=== PATIENT | male | born 1965 | race Caucasian/White ===

== ENCOUNTER 2016-10-04 10:14 | Inpatient (IN) | payer OTHER ==
[2016-10-04] VITALS (22 sets, daily range): BP systolic 95–142; BP diastolic 61–91; PULSE 78–106; RESP 12–18; Ht 185.4 cm; Wt 98.4 kg
[~2016-10-04] VITALS: Ht 185.4 cm; Wt 98.4 kg
[~2016-10-04 10:14] MED LIST: EPHEDrine SULFATE 50 MG/5 ML SYG ONE; SUCCINYLCHOLINE CHLORIDE 100 MG/5 ML SYG IV ONE
[2016-10-04] MEDS ORDERED: AMPICILLIN/SULB 3 GM/NS (PMX) 100 ML IVPB ONE (12:00)
[2016-10-04] MEDS ORDERED: SOD CHLORIDE 0.9% 1,000 ML IV SCH (12:00)
[2016-10-04] MEDS ORDERED: FENTAnyl 50 MCG/ML VIAL ONE ×2 (13:21→16:22)
[2016-10-04] MEDS ORDERED: ROCURONIUM 50 MG INJ ONE (13:21)
[2016-10-04] MEDS ORDERED: PROPOFOL 20 ML ONE (13:21)
[2016-10-04] MEDS ORDERED: MIDAZOLAM 1 MG/ML 2 ML INJ ONE (13:21)
[2016-10-04] MEDS ORDERED: LIDOCAINE 1% (MDV) 20 ML INJ ONE (13:22)
[2016-10-04] MEDS ORDERED: PHENYLephrine (100 MCG/ML) 5ML SYG ONE (14:14)
[2016-10-04] MEDS ORDERED: ROPIVACAINE 0.2% 20 ML VIAL ONE ×2 (14:34→16:20)
[2016-10-04] MEDS ORDERED: ONDANSETRON 4 MG INJ ONE (15:17)
[2016-10-04] MEDS ORDERED: FAMOTIDINE 20 MG INJ ONE (15:18)
[2016-10-04] MEDS ORDERED: DEXAMETHASONE 4 MG/ML 1 ML INJ ONE (15:18)
[2016-10-04] MEDS ORDERED: SUGAMMADEX SODIUM 200 MG/2 ML VIAL IV ONE (16:17)
[2016-10-04] MEDS ORDERED: FENTAnyl 2MCG/ML-ROPIV 0.2% 100 ML ONE (16:18)
[2016-10-04] MEDS: FENTAnyl 2MCG/ML-ROPIV 0.2% 100 ML BAG EPI SCH (17:12)
[2016-10-04] MEDS ORDERED: DIPHENHYDRAMINE 50 MG INJ IV PRN (17:30)
[2016-10-04] MEDS ORDERED: PROCHLORPERAZINE 10 MG INJ IV PRN (17:30)
[2016-10-04] MEDS ORDERED: NALOXONE (0.4 MG/ML) INJ IV PRN (17:30)
[2016-10-04] MEDS ORDERED: MEPERIDINE 25 MG INJ IV PRN (17:30)
[2016-10-04] MEDS ORDERED: HYDROmorphONE (0.2 MG/ML) 10ML SYG IV PRN ×2 (17:30)
[2016-10-04] MEDS ORDERED: ONDANSETRON 4 MG INJ IV PRN (17:30)
[2016-10-04] MEDS ORDERED: HYDROmorphONE 1 MG/ML SYG IV PRN ×2 (17:30)
[2016-10-04] MEDS: D5W-0.45 NACL + KCL 20 MEQ 1,000 ML IV SCH ×2 (17:38→23:14)
--- NOTE | 2016-10-04 17:42 | RADRPT ---
PROCEDURE: XR Chest. CLINICAL INDICATION: Shortness of breath. Partial gastrectomy TECHNIQUE: A single portable view of the chest was obtained. COMPARISON: None FINDINGS: A nasogastric tube is seen, the tip of which is not visualized. A right internal jugular central ve nous catheter is seen in the SVC. The cardiomediastinal silhouette is within normal limits. The elvia ngs and pleural spaces are clear. The soft tissues and osseous structures are unremarkable. IMPRESSION: 1. Nasogastric tube with the tip not visualized. The right internal jugular catheter is in satisfa ctory location. 2. No acute cardiopulmonary disease. RPTAT: HPNM Physician Lesia Date Time Electronically viewed and signed by Physician Lesia on 10/04/2016 17:42 /
--- NOTE | 2016-10-04 20:05 | OPR ---
DATE OF OPERATION: 10/04/2016 PREOPERATIVE DIAGNOSIS: Gastric cancer. POSTOPERATIVE DIAGNOSIS: Subtotal gastrectomy with Veronica-en-Y gastrojejunostomy. ANESTHESIA: General. ANESTHESIOLOGIST: Jeremy Martínez MD SURGEON: Erick Adams MD GLUE JOINTER FEEDER: Rick Serrano MD INDICATIONS FOR PROCEDURE: The patient is a 51-year-old male, who developed epigastric abdominal pain. He underwent upper endoscopy and was found to have an ulcer in the antrum of the stomach. Biopsies were taken and were positive for adenocarcinoma. The patient was counseled as to the need for definitive surgery. He consented and was scheduled for surgery. DESCRIPTION OF PROCEDURE: The patient was brought to the operating theater, placed under general anesthesia. Prior to that, however, an epidural catheter was placed. After being put under general anesthesia, a central venous catheter was also placed. The patient's abdomen was then shaved, prepped and draped in the usual sterile fashion. An upper midline incision was made from the left side of the xiphoid through the midline and around the umbilicus. Subcutaneous tissue was dissected with cautery down to the anterior rectus sheath. The linea alba was incised. The abdomen was entered without difficulty. The Bookwalter was then placed and excellent exposure was obtained. Initial inspection of the abdomen including the liver and the mesentery did not reveal any definite obvious evidence of metastatic spread. The stomach was then inspected. There was a palpable lesion in the antrum of the stomach. Preparations for Billroth 2 surgery were then made. The avascular space between the greater omentum and the transverse mesentery was entered, sequentially the portions of the greater omentum were transected using the LigaSure device. This took place to a point well beyond the tumor more distally. The 1st portion of the duodenum was mobilized. The lesser omentum was then incised and also transected with the LigaSure device. At this point, with the stomach fully mobilized, the 1st portion of the duodenum was transected with a TA stapler, and the staple line was then oversewn with a 2-0 Prolene suture. Suitable points of transection on the proximal stomach were then identified, taking great care to include complete resection of the antrum and a portion of the body of the stomach. Transection then took place with GERARDO staplers with green ruthann. Specimen was removed and the attending pathologist, , inspected it. He opened the specimen and stated the margins were grossly clear. At this point, preparation for reanastomosis was made. The ligament of Treitz was identified. A point approximately 35 cm distal, preparations for transection was made. The bowel was cleared of its mesentery and transected with the GERARDO stapler. The proximal portion of the duodenum was then brought in close approximation with a more distal segment of jejunum approximately 35 cm distal to the point of transection. Stay sutures were used to approximate the 2 pieces of bowel. Dual enterotomies were made. Anastomosis was created with a GERARDO stapler. Staple line was inspected. Mild residual bleeding was controlled with either cautery or suture with 3-0 pop-off sutures. The anastomosis was then completed with a GERARDO stapler. The anastomosis was inspected and deemed to be quite suitable. Preparations for the gastrojejunostomy were then made. The proximal loop of jejunum was then brought in antecolic fashion to the stomach. Decision was made to perform a retrogastric anastomosis. The Veronica limb was then brought in close approximation with the posterior aspect of the greater curvature. Stay sutures of 3-0 Vicryl sutures were placed. A gastrotomy and a jejunotomy was made. An anastomosis was then created with a GERARDO stapler and the staple line was inspected. Minimal bleeding was controlled with cautery. The NG tube was then brought into the anastomosis and the anastomosis was completed with a GERARDO stapler in a standard fashion. At this point, lap, sponge, and instrument counts were correct. Final irrigation and inspection of the abdomen took place. There was no evidence of bleeding. The Bookwalter retractor was then removed and again lap, sponge, and instrument counts were correct. The abdomen was then closed with number 1 looped PDS sutures in running fashion, and the skin was reapproximated with skin ruthann. The patient tolerated the procedure well. Estimated blood loss was 50 cc. There were no complications and the patient was transported in stable condition to the recovery room. Dictated By: Erick Adams MD /peace/gabbi /Document#: [id number]
[2016-10-04] MEDS: PIPER-TAZO 3.375 GM IV (PMX) 100 ML IVPB SCH (20:30)
[2016-10-04] MEDS ORDERED: APIX5TAB PO (22:43)
[2016-10-05] VITALS (13 sets, daily range): BP systolic 89–145; BP diastolic 52–81; PULSE 88–100; RESP 16–19
[2016-10-05] MEDS: D5W-0.45 NACL + KCL 20 MEQ 1,000 ML IV SCH ×3 (01:48→17:54)
[2016-10-05] MEDS: PIPER-TAZO 3.375 GM IV (PMX) 100 ML IVPB SCH ×3 (02:03→14:05)
[2016-10-05] MEDS: PANTOPRAZOLE 40 MG INJ IV SCH (06:04)
[2016-10-05] MEDS: FENTAnyl 2MCG/ML-ROPIV 0.2% 100 ML BAG EPI SCH ×2 (06:17→20:04)
--- NOTE | 2016-10-05 07:50 | HP ---
Date/Time of Note Date/Time of Note DATE: 10/05/16 TIME: 07:49 Assessment/Plan VTE Prophylaxis VTE Prophylaxis Intervention: other Lines/Catheters IV Catheter Type (from Nrsg): Central Line Central line still needed: Yes Reason Cath still needed: skin wounds contaminated by urine Assessment/Plan Chief Complaint/Hosp Course 1) stomach CA - s/p partial gastrectomy - monitor clinically - follow surgical recommendations Problems: HPI/ROS Admit Date/Time Admit Date/Time Oct 04, 2016 at 10:14 Hx of Present Illness Patient with stomach cancer comes in for partial gastrectomy. Patient tolerated the procedure without complication. PMH/Family/Social Social History Alcohol Use: occasionally Smoking Status: Current every day smoker Exam/Review of Systems Vital Signs Vitals Vital Signs Date Time Temp Pulse Resp B/P Pulse Ox O2 Delivery O2 Flow Rate FiO2 10/05/16 06:40 94 16 90/58 98 Nasal Cannula 2.0 10/05/16 04:40 98.7 Intake and Output 10/04/16 10/04/16 10/05/16 15:00 23:00 07:00 Intake Total 2600 ml 1550 ml Output Total 50 ml 2350 ml Balance 2550 ml -800 ml Exam Constitutional: well developed Head: atraumatic, normocephalic Neck: supple Respiratory: clear to auscultation Cardiovascular: regular rate and rhythm Gastrointestinal: non-tender, soft Extremities: normal pulses Medications Medications Current Medications Pantoprazole 40 mg 40 mg DAILY@06 IV Last administered on 10/05/16 06:04; Admin Dose 40 MG; Start 10/05/16 at 06:00 Potassium Chloride/Dextrose/ Sod Cl (D5-1/2ns + KCl 20 Meq) 1,000 ml @ 150 mls/ hr Q6H40M IV Last administered on 10/05/16 01:48; Admin Dose 150 MLS/HR; Start 10/04/16 at 16:34 Hydromorphone HCl (Dilaudid) 0.2 mg Q2H PRN IV PAIN LEVEL 1-5; Start 10/04/16 at 17:30 Hydromorphone HCl (Dilaudid) 0.4 mg Q2H PRN IV PAIN LEVEL 6-10; Start 10/04/16 at 17:30 Naloxone HCl 0.2 mg 0.2 mg Q2M PRN IV FOR RESP RATE 8 OR LESS; Start 10/04/16 at 17:30 Piperacillin Sod/ Tazobactam Sod (Zosyn 3.375gm/ 100 ml (Pmx)) 100 ml @ 200 mls /hr Q6H IVPB Last administered on 10/05/16t 02:03; Admin Dose 200 MLS/HR; Start 10/04/16 at 20:00; Stop 10/05/16 at 14:29 MOHINDER SIMMS Oct 05, 2016 07:50
[2016-10-05 09:32] LABS: BASOPHILS % 0.3 % (0.0-2.0); HEMATOCRIT 43.3 % (42.0-52.0); HEMOGLOBIN 14.8 g/dl (14.0-18.0); MEAN CORPUSCULAR HEMOGLOBIN 30.9 pg (29.0-33.0); MEAN CORPUSCULAR HGB CONC 34.2 g/dl (32.0-37.0); MEAN CORPUSCULAR VOLUME 90.4 fl (82.0-101.0); MEAN PLATELET VOLUME 10.1 fl (7.4-10.4); MONOCYTES % 8.6 % (0.0-11.0); NEUTROPHIL # 9.2 10^3/ul (1.6-7.5); NEUTROPHILS % 81.6 % (39.0-77.0); PLATELET COUNT 186 10^3/UL (140-415); RED BLOOD COUNT 4.79 10^6/ul (4.70-6.10); RED CELL DISTRIBUTION WIDTH 12.5 % (11.5-14.5); WHITE BLOOD COUNT 11.2 10^3/ul (4.8-10.8)
[2016-10-05 09:45] LABS: INR 1.14; PROTIME 14.6 Sec (12.2-14.2); PT RATIO 1.1
[2016-10-05 09:46] LABS: PARTIAL THROMBOPLASTIN TIME 32.7 Sec (25.0-35.0)
[2016-10-05 09:47] LABS: CALCIUM 7.8 mg/dl (8.4-10.2); CREATININE 0.92 mg/dl (0.61-1.24); POTASSIUM 4.4 mmol/L (3.5-5.1)
--- NOTE | 2016-10-05 13:15 | PN ---
Date/Time of Note Date/Time of Note DATE: 10/05/16 TIME: 13:01 Assessment/Plan VTE Prophylaxis VTE Prophylaxis Intervention: SCD's Lines/Catheters IV Catheter Type (from Nrsg): Central Line Central line still needed: Yes Reason Cath still needed: other (indicate) (pt.has epidural catheter for pain, untill the epidural comes out, we have to keep foly in place) Assessment/Plan Assessment/Plan 51 years old male. Postop day #1. Status post subtotal gastrectomy for pre- pyloric cancer of the stomach. Stable and is doing fine. NG tube is in place. Patient is n.p.o. Wagner catheter is in place. Patient has epidural catheter and anesthesia therefore we will keep foly catheter till the epidural catheter comes out. SCDs is in place. Patient advised to perform active movement of the toes and ankles and knees in the bed. Subjective 24 Hr Interval Summary Free Text/Dictation No specific complaint. Would like to get out of bed and walk around. Patient was told because of the epidural. Could really be cautious to get him out of bed and let him walk around. Exam/Review of Systems Vital Signs Vitals Vital Signs Date Time Temp Pulse Resp B/P Pulse Ox O2 Delivery O2 Flow Rate FiO2 10/05/16 07:47 98.1 85 18 89/55 100 10/05/16 06:40 Nasal Cannula 2.0 Intake and Output 10/04/16 10/04/16 10/05/16 15:00 23:00 07:00 Intake Total 2600 ml 1550 ml Output Total 50 ml 2350 ml Balance 2550 ml -800 ml Exam Postop day #1. Vital sign is stable. NG tube was connected to intermittent suction but unfortunately it was not functioning so called the maintenance to change the machine. Wagner is in place and will be in the place and the patient gets out of bed and walks around an epidural is removed. Heart regular lungs clear abdomen soft legs no calf tenderness SCDs around the legs. Results Result Diagram: 10/05/16 0852 10/05/16 0852 Results 24 hrs Laboratory Tests Test 10/05/16 08:52 White Blood Count 11.2 H Red Blood Count 4.79 Hemoglobin 14.8 Hematocrit 43.3 Mean Corpuscular Volume 90.4 Mean Corpuscular Hemoglobin 30.9 Mean Corpuscular Hemoglobin Concent 34.2 Red Cell Distribution Width 12.5 Platelet Count 186 Mean Platelet Volume 10.1 Neutrophils % 81.6 H Lymphocytes % 9.0 L Monocytes % 8.6 Eosinophils % 0.0 Basophils % 0.3 Nucleated Red Blood Cells % 0.0 Neutrophils # 9.2 H Lymphocytes # 1.0 Monocytes # 1.0 H Eosinophils # 0.0 Basophils # 0.0 Nucleated Red Blood Cells # 0.0 Prothrombin Time 14.6 H Prothrombin Time Ratio 1.1 INR International Normalized Ratio 1.14 Activated Partial Thromboplast Time 32.7 Sodium Level 139 Potassium Level 4.4 Chloride Level 102 Carbon Dioxide Level 27 Anion Gap 14 Blood Urea Nitrogen 11 Creatinine 0.92 Glucose Level 126 Calcium Level 7.8 L Medications Medications Current Medications Pantoprazole 40 mg 40 mg DAILY@06 IV Last administered on 10/05/16 06:04; Admin Dose 40 MG; Start 10/05/16 at 06:00 Potassium Chloride/Dextrose/ Sod Cl (D5-1/2ns + KCl 20 Meq) 1,000 ml @ 150 mls/ hr Q6H40M IV Last administered on 10/05/16 09:38; Admin Dose 150 MLS/HR; Start 10/04/16 at 16:34 Hydromorphone HCl (Dilaudid) 0.2 mg Q2H PRN IV PAIN LEVEL 1-5; Start 10/04/16 at 17:30 Hydromorphone HCl (Dilaudid) 0.4 mg Q2H PRN IV PAIN LEVEL 6-10; Start 10/04/16 at 17:30 Naloxone HCl 0.2 mg 0.2 mg Q2M PRN IV FOR RESP RATE 8 OR LESS; Start 10/04/16 at 17:30 Piperacillin Sod/ Tazobactam Sod (Zosyn 3.375gm/ 100 ml (Pmx)) 100 ml @ 200 mls /hr Q6H IVPB Last administered on 10/05/16 09:34; Admin Dose 200 MLS/HR; Start 10/04/16 at 20:00; Stop 10/05/16 at 14:29 HILARY WRIGHT MD Oct 05, 2016 13:14
[2016-10-05] MEDS ORDERED: HYDROmorphONE 1 MG/ML SYG IV PRN (22:30)
[2016-10-06] MEDS: D5W-0.45 NACL + KCL 20 MEQ 1,000 ML IV SCH ×4 (01:04→22:30)
[2016-10-06 04:00] VITALS: BP 104/62; PULSE 97; RESP 18
[2016-10-06 06:05] LABS: BASOPHIL # 0.1 10^3/ul (0.0-0.1); BASOPHILS % 0.5 % (0.0-2.0); EOSINOPHILS # 0.1 10^3/ul (0.0-0.5); EOSINOPHILS % 1.2 % (0.0-7.0); HEMATOCRIT 45.1 % (42.0-52.0); HEMOGLOBIN 14.7 g/dl (14.0-18.0); LYMPHOCYTES % 18.1 % (15.0-51.0); MEAN CORPUSCULAR HEMOGLOBIN 29.6 pg (29.0-33.0); MEAN CORPUSCULAR HGB CONC 32.6 g/dl (32.0-37.0); MEAN CORPUSCULAR VOLUME 90.9 fl (82.0-101.0); MEAN PLATELET VOLUME 10.3 fl (7.4-10.4); MONOCYTE # 1.4 10^3/ul (0.3-0.9); NEUTROPHIL # 7.6 10^3/ul (1.6-7.5); NEUTROPHILS % 67.8 % (39.0-77.0); PLATELET COUNT 180 10^3/UL (140-415); RED BLOOD COUNT 4.96 10^6/ul (4.70-6.10); WHITE BLOOD COUNT 11.2 10^3/ul (4.8-10.8)
[2016-10-06 06:25] LABS: CALCIUM 7.9 mg/dl (8.4-10.2); CREATININE 0.97 mg/dl (0.61-1.24)
[2016-10-06] MEDS: PANTOPRAZOLE 40 MG INJ IV SCH (06:34)
[2016-10-06 07:00] VITALS: BP 100/63; RESP 18
[2016-10-06 07:05] LABS: INR 1.13; PROTIME 14.5 Sec (12.2-14.2); PT RATIO 1.1
[2016-10-06 07:06] LABS: PARTIAL THROMBOPLASTIN TIME 34.5 Sec (25.0-35.0)
[2016-10-06] MEDS: FENTAnyl 2MCG/ML-ROPIV 0.2% 100 ML BAG EPI SCH ×2 (09:21→23:47)
--- NOTE | 2016-10-06 10:56 | PN ---
Date/Time of Note Date/Time of Note DATE: 10/06/16 TIME: 10:55 Assessment/Plan VTE Prophylaxis VTE Prophylaxis Intervention: other Lines/Catheters IV Catheter Type (from Nrs): Central Line Central line still needed: Yes Assessment/Plan Chief Complaint/Hosp Course 1) stomach CA - s/p partial gastrectomy - monitor clinically - follow surgical recommendations Problems: Subjective 24 Hr Interval Summary Free Text/Dictation Patient complain of abdominal pain Exam/Review of Systems Vital Signs Vitals Vital Signs Date Time Temp Pulse Resp B/P Pulse Ox O2 Delivery O2 Flow Rate FiO2 10/06/16 07:00 98.5 88 18 100/63 97 10/06/16 04:00 Nasal Cannula 2.0 Intake and Output 10/05/16 10/05/16 10/06/16 15:00 23:00 07:00 Intake Total 806 ml 1056 ml 56 ml Output Total 1300 ml 150 ml Balance 806 ml -244 ml -94 ml Exam Constitutional: well developed Head: atraumatic, normocephalic Neck: supple Respiratory: clear to auscultation Cardiovascular: regular rate and rhythm Gastrointestinal: non-tender, soft Extremities: normal pulses Results Result Diagram: 10/06/16 0510 10/06/16 0509 Results 24 hrs Laboratory Tests Test 10/06/16 05:00 10/06/16 05:09 10/06/16 05:10 Prothrombin Time 14.5 H Prothrombin Time Ratio 1.1 INR International Normalized Ratio 1.13 Activated Partial Thromboplast Time 34.5 Sodium Level 141 Potassium Level 4.0 Chloride Level 102 Carbon Dioxide Level 29 Anion Gap 14 Blood Urea Nitrogen 10 Creatinine 0.97 Glucose Level 95 Calcium Level 7.9 L White Blood Count 11.2 H Red Blood Count 4.96 Hemoglobin 14.7 Hematocrit 45.1 Mean Corpuscular Volume 90.9 Mean Corpuscular Hemoglobin 29.6 Mean Corpuscular Hemoglobin Concent 32.6 Red Cell Distribution Width 13.0 Platelet Count 180 Mean Platelet Volume 10.3 Neutrophils % 67.8 Lymphocytes % 18.1 Monocytes % 12.0 H Eosinophils % 1.2 Basophils % 0.5 Nucleated Red Blood Cells % 0.0 Neutrophils # 7.6 H Lymphocytes # 2.0 Monocytes # 1.4 H Eosinophils # 0.1 Basophils # 0.1 Nucleated Red Blood Cells # 0.0 Medications Medications Current Medications Pantoprazole 40 mg 40 mg DAILY@06 IV Last administered on 10/06/16 06:34; Admin Dose 40 MG; Start 10/05/16 at 06:00 Potassium Chloride/Dextrose/ Sod Cl (D5-1/2ns + KCl 20 Meq) 1,000 ml @ 150 mls/ hr Q6H40M IV Last administered on 10/06/16 07:54; Admin Dose 150 MLS/HR; Start 10/04/16 at 16:34 Hydromorphone HCl (Dilaudid) 0.2 mg Q2H PRN IV PAIN LEVEL 1-5; Start 10/04/16 at 17:30 Hydromorphone HCl (Dilaudid) 0.4 mg Q2H PRN IV PAIN LEVEL 6-10 Last administered on 10/06/16 10:02; Admin Dose 0.4 MG; Start 10/04/16 at 17:30 Naloxone HCl (Narcan) 0.2 mg Q2M PRN IV FOR RESP RATE 8 OR LESS; Start at 17:30 Hydromorphone HCl (Dilaudid) 0.2 mg Q10MIN PRN IV breakthrough pain Last administered on 10/05/16 22:35; Admin Dose 0.2 MG; Start 10/05/16 at 22:30 MOHINDER SIMMS Oct 06, 2016 10:56
[2016-10-06] MEDS ORDERED: ENOXAPARIN 30 MG/0.3 ML SYG SC SCH (11:00)
[2016-10-06 14:00] VITALS: BP 108/67; PULSE 87; RESP 17
--- NOTE | 2016-10-06 14:08 | PN ---
Date/Time of Note Date/Time of Note DATE: 10/06/16 TIME: 14:00 Assessment/Plan VTE Prophylaxis VTE Prophylaxis Intervention: SCD's Lines/Catheters IV Catheter Type (from Nrs): Central Line Central line still needed: Yes Urinary Cath still in place: Yes Reason Cath still needed: other (indicate) (Patient is on epidural anesthesia. When epidural catheter is removed then removal of the Wagner catheter will be followed) Assessment/Plan Assessment/Plan 51-year-old gentleman status post partial gastrectomy for the periampullary cancer of the stomach. Today is postop day #2 overall patient is doing fine vital sign is stable. NG tube. Central line. Wagner catheter. They are all in place and functioning. . [facility] has ordered that has a started patient on Lovenox 30 mg subcu first dose was given today morning. Considering that the NG tube drainage is a slightly bloody and the patient is immediate days. I think it is better to hold it to hold it for tomorrow dose. Continue SCDs. Subjective 24 Hr Interval Summary Free Text/Dictation October 06, 2016. Postop day #2. . Patient does not have any specific complaint. Pain is under control. The anesthesiologist has informed the nurse that patient can be out of bed and sitting in chair even though has epidural. But the Wagner catheter should not be removed. Exam/Review of Systems Vital Signs Vitals Vital Signs Date Time Temp Pulse Resp B/P Pulse Ox O2 Delivery O2 Flow Rate FiO2 10/06/16 09:00 Nasal Cannula 2.0 10/06/16 07:00 98.5 88 18 100/63 97 Intake and Output 10/05/16 10/05/16 10/06/16 15:00 23:00 07:00 Intake Total 806 ml 1056 ml 56 ml Output Total 1300 ml 150 ml Balance 806 ml -244 ml -94 ml Exam Patient is awake alert oriented 3 comfortable. Heart regular lungs clear abdomen soft. Extremities around the legs no calf tenderness. Hemoglobin hematocrit is stable. NG tube connected to intermittent suction there is 200 cc of semi-bloody fluid in the canister. Wagner catheter in place. Results Result Diagram: 10/06/16 0510 10/06/16 0509 Results 24 hrs Laboratory Tests Test 10/06/16 05:00 10/06/16 05:09 10/06/16 05:10 Prothrombin Time 14.5 H Prothrombin Time Ratio 1.1 INR International Normalized Ratio 1.13 Activated Partial Thromboplast Time 34.5 Sodium Level 141 Potassium Level 4.0 Chloride Level 102 Carbon Dioxide Level 29 Anion Gap 14 Blood Urea Nitrogen 10 Creatinine 0.97 Glucose Level 95 Calcium Level 7.9 L White Blood Count 11.2 H Red Blood Count 4.96 Hemoglobin 14.7 Hematocrit 45.1 Mean Corpuscular Volume 90.9 Mean Corpuscular Hemoglobin 29.6 Mean Corpuscular Hemoglobin Concent 32.6 Red Cell Distribution Width 13.0 Platelet Count 180 Mean Platelet Volume 10.3 Neutrophils % 67.8 Lymphocytes % 18.1 Monocytes % 12.0 H Eosinophils % 1.2 Basophils % 0.5 Nucleated Red Blood Cells % 0.0 Neutrophils # 7.6 H Lymphocytes # 2.0 Monocytes # 1.4 H Eosinophils # 0.1 Basophils # 0.1 Nucleated Red Blood Cells # 0.0 Medications Medications Current Medications Pantoprazole 40 mg 40 mg DAILY@06 IV Last administered on 10/06/16 06:34; Admin Dose 40 MG; Start 10/05/16 at 06:00 Potassium Chloride/Dextrose/ Sod Cl (D5-1/2ns + KCl 20 Meq) 1,000 ml @ 150 mls/ hr Q6H40M IV Last administered on 10/06/16 07:54; Admin Dose 150 MLS/HR; Start 10/04/16 at 16:34 Hydromorphone HCl (Dilaudid) 0.2 mg Q2H PRN IV PAIN LEVEL 1-5; Start 10/04/16 at 17:30 Hydromorphone HCl (Dilaudid) 0.4 mg Q2H PRN IV PAIN LEVEL 6-10 Last administered on 10/06/16 10:02; Admin Dose 0.4 MG; Start 10/04/16 at 17:30 Naloxone HCl (Narcan) 0.2 mg Q2M PRN IV FOR RESP RATE 8 OR LESS; Start at 17:30 Hydromorphone HCl (Dilaudid) 0.2 mg Q10MIN PRN IV breakthrough pain Last administered on 10/05/16 22:35; Admin Dose 0.2 MG; Start 10/05/16 at 22:30 Enoxaparin Sodium (Lovenox) 30 mg DAILY SC Last administered on 7/29/17at 11:46 ; Admin Dose 30 MG; Start 10/06/16 at 11:00 HILARY WRIGHT MD Oct 06, 2016 14:08
[2016-10-06 19:44] VITALS: BP 119/67; RESP 19
[2016-10-07 02:58] VITALS: BP 108/61; RESP 18
[2016-10-07] MEDS: PANTOPRAZOLE 40 MG INJ IV SCH (06:09)
[2016-10-07] MEDS: D5W-0.45 NACL + KCL 20 MEQ 1,000 ML IV SCH ×5 (06:11→19:43)
[2016-10-07 08:20] VITALS: BP 97/55; RESP 20
[2016-10-07 10:30] LABS: WHITE BLOOD COUNT 11.3 10^3/ul (4.8-10.8)
[2016-10-07 10:31] LABS: BASOPHIL # 0.1 10^3/ul (0.0-0.1); BASOPHILS % 0.4 % (0.0-2.0); EOSINOPHILS # 0.2 10^3/ul (0.0-0.5); HEMATOCRIT 43.6 % (42.0-52.0); HEMOGLOBIN 14.8 g/dl (14.0-18.0); LYMPHOCYTES # 1.2 10^3/ul (0.8-2.9); LYMPHOCYTES % 10.5 % (15.0-51.0); MEAN CORPUSCULAR HEMOGLOBIN 30.6 pg (29.0-33.0); MEAN CORPUSCULAR HGB CONC 33.9 g/dl (32.0-37.0); MEAN CORPUSCULAR VOLUME 90.3 fl (82.0-101.0); MEAN PLATELET VOLUME 10.2 fl (7.4-10.4); MONOCYTE # 1.3 10^3/ul (0.3-0.9); MONOCYTES % 11.2 % (0.0-11.0); NEUTROPHIL # 8.5 10^3/ul (1.6-7.5); NEUTROPHILS % 75.5 % (39.0-77.0); PLATELET COUNT 169 10^3/UL (140-415); RED BLOOD COUNT 4.83 10^6/ul (4.70-6.10); RED CELL DISTRIBUTION WIDTH 12.5 % (11.5-14.5)
[2016-10-07 10:38] LABS: INR 1.08; PT RATIO 1.1
[2016-10-07 10:39] LABS: PARTIAL THROMBOPLASTIN TIME 40.1 Sec (25.0-35.0)
[2016-10-07 10:44] LABS: CALCIUM 8.2 mg/dl (8.4-10.2); CREATININE 0.91 mg/dl (0.61-1.24); POTASSIUM 4.2 mmol/L (3.5-5.1)
--- NOTE | 2016-10-07 12:02 | PN ---
Date/Time of Note Date/Time of Note DATE: 10/07/16 TIME: 12:01 Assessment/Plan VTE Prophylaxis VTE Prophylaxis Intervention: other Lines/Catheters IV Catheter Type (from Nrsg): Central Line Central line still needed: Yes Urinary Cath still in place: Yes Reason Cath still needed: skin wounds contaminated by urine Assessment/Plan Chief Complaint/Hosp Course 1) stomach CA - s/p partial gastrectomy - monitor clinically - follow surgical recommendations Problems: Subjective 24 Hr Interval Summary Free Text/Dictation Patient states that the pain is under control Exam/Review of Systems Vital Signs Vitals Vital Signs Date Time Temp Pulse Resp B/P Pulse Ox O2 Delivery O2 Flow Rate FiO2 10/07/16 08:20 98.0 70 20 97/55 100 10/07/16 08:00 Nasal Cannula 1.0 Intake and Output 10/06/16 10/06/16 10/07/16 14:59 22:59 06:59 Intake Total 2052 ml 1056 ml 1000 ml Output Total 1120 ml 2300 ml Balance 2052 ml -64 ml -1300 ml Exam Constitutional: well developed Head: atraumatic, normocephalic Neck: supple Respiratory: clear to auscultation Cardiovascular: regular rate and rhythm Gastrointestinal: non-tender, soft Extremities: normal pulses Results Result Diagram: 10/07/1617 10/07/16 0917 Results 24 hrs Laboratory Tests Test 10/07/16 09:17 White Blood Count 11.3 H Red Blood Count 4.83 Hemoglobin 14.8 Hematocrit 43.6 Mean Corpuscular Volume 90.3 Mean Corpuscular Hemoglobin 30.6 Mean Corpuscular Hemoglobin Concent 33.9 Red Cell Distribution Width 12.5 Platelet Count 169 Mean Platelet Volume 10.2 Neutrophils % 75.5 Lymphocytes % 10.5 L Monocytes % 11.2 H Eosinophils % 2.0 Basophils % 0.4 Nucleated Red Blood Cells % 0.0 Neutrophils # 8.5 H Lymphocytes # 1.2 Monocytes # 1.3 H Eosinophils # 0.2 Basophils # 0.1 Nucleated Red Blood Cells # 0.0 Prothrombin Time 14.0 Prothrombin Time Ratio 1.1 INR International Normalized Ratio 1.08 Activated Partial Thromboplast Time 40.1 H Sodium Level 139 Potassium Level 4.2 Chloride Level 99 Carbon Dioxide Level 28 Anion Gap 16 Blood Urea Nitrogen 8 Creatinine 0.91 Glucose Level 106 Calcium Level 8.2 L Medications Medications Current Medications Pantoprazole 40 mg 40 mg DAILY@06 IV Last administered on 10/07/16 06:09; Admin Dose 40 MG; Start 10/05/16 at 06:00 Potassium Chloride/Dextrose/ Sod Cl (D5-1/2ns + KCl 20 Meq) 1,000 ml @ 150 mls/ hr Q6H40M IV Last administered on 10/07/16 06:11; Admin Dose 150 MLS/HR; Start 10/04/16 at 16:34 Hydromorphone HCl (Dilaudid) 0.2 mg Q2H PRN IV PAIN LEVEL 1-5 Last administered on 10/07/16 09:43; Admin Dose 0.2 MG; Start 10/04/16 at 17:30 Hydromorphone HCl (Dilaudid) 0.4 mg Q2H PRN IV PAIN LEVEL 6-10 Last administered on 10/06/16 10:02; Admin Dose 0.4 MG; Start 10/04/16 at 17:30 Naloxone HCl (Narcan) 0.2 mg Q2M PRN IV FOR RESP RATE 8 OR LESS; Start at 17:30 Hydromorphone HCl (Dilaudid) 0.2 mg Q10MIN PRN IV breakthrough pain Last administered on 10/05/16 22:35; Admin Dose 0.2 MG; Start 10/05/16 at 22:30 Enoxaparin Sodium (Lovenox) 30 mg DAILY SC Last administered on 10/06/16 11:46 ; Admin Dose 30 MG; Start 10/06/16 at 11:00; Status Future Hold MOHINDER SIMMS Oct 07, 2016 12:02
--- NOTE | 2016-10-07 14:59 | PN ---
Date/Time of Note Date/Time of Note DATE: 10/07/16 TIME: 14:50 Assessment/Plan VTE Prophylaxis VTE Prophylaxis Intervention: ambulation, SCD's Lines/Catheters IV Catheter Type (from Nrs): Central Line Central line still needed: Yes Urinary Cath still in place: Yes Reason Cath still needed: other (indicate) (Epidural catheter was DC'd just half an hour ago, patient is not fully ambulated yet we will give some time for tomorrow morning and at that time we will DC the Wagner catheter .) Assessment/Plan Assessment/Plan 51-year-old gentleman status post subtotal gastrectomy for cancer of the stomach. Postop day #3 so far the vital sign is stable. NG tube is in place. Draining serosanguineous fluid. Last 24 hours was 260 cc. Anesthesiologist stopped the epidural catheter. By tomorrow morning the effect of the epidural is completely gone and we will ambulate the patient completely and also we will DC the Wagner catheter. Subjective 24 Hr Interval Summary Free Text/Dictation Postop day #3. Status post subtotal gastrectomy. Does not have any specific complaint. Epidural catheter was DC'd by the anesthesiologist just about half an hour ago. Patient stated that has passed some flatus. No bowel movement. Exam/Review of Systems Vital Signs Vitals Vital Signs Date Time Temp Pulse Resp B/P Pulse Ox O2 Delivery O2 Flow Rate FiO2 10/07/16 08:20 98.0 70 20 97/55 100 10/07/16 08:00 Nasal Cannula 1.0 Intake and Output 10/06/16 10/06/16 10/07/16 15:00 23:00 07:00 Intake Total 2052 ml 1056 ml 1000 ml Output Total 1120 ml 2300 ml Balance 2052 ml -64 ml -1300 ml Exam Awake alert oriented 3 laying down in the bed. Vital sign is stable. Heart regular lungs clear abdomen not distended soft. Lower extremity no calf tenderness. Wagner catheter is in place we will keep till tomorrow morning. Results Result Diagram: 10/07/1617 10/07/1617 Results 24 hrs Laboratory Tests Test 10/07/16 09:17 White Blood Count 11.3 H Red Blood Count 4.83 Hemoglobin 14.8 Hematocrit 43.6 Mean Corpuscular Volume 90.3 Mean Corpuscular Hemoglobin 30.6 Mean Corpuscular Hemoglobin Concent 33.9 Red Cell Distribution Width 12.5 Platelet Count 169 Mean Platelet Volume 10.2 Neutrophils % 75.5 Lymphocytes % 10.5 L Monocytes % 11.2 H Eosinophils % 2.0 Basophils % 0.4 Nucleated Red Blood Cells % 0.0 Neutrophils # 8.5 H Lymphocytes # 1.2 Monocytes # 1.3 H Eosinophils # 0.2 Basophils # 0.1 Nucleated Red Blood Cells # 0.0 Prothrombin Time 14.0 Prothrombin Time Ratio 1.1 INR International Normalized Ratio 1.08 Activated Partial Thromboplast Time 40.1 H Sodium Level 139 Potassium Level 4.2 Chloride Level 99 Carbon Dioxide Level 28 Anion Gap 16 Blood Urea Nitrogen 8 Creatinine 0.91 Glucose Level 106 Calcium Level 8.2 L Medications Medications Current Medications Pantoprazole 40 mg 40 mg DAILY@06 IV Last administered on 10/07/16 06:09; Admin Dose 40 MG; Start 10/05/16 at 06:00 Potassium Chloride/Dextrose/ Sod Cl (D5-1/2ns + KCl 20 Meq) 1,000 ml @ 150 mls/ hr Q6H40M IV Last administered on 10/07/16 13:16; Admin Dose 150 MLS/HR; Start 10/04/16 at 16:34 Hydromorphone HCl (Dilaudid) 0.2 mg Q2H PRN IV PAIN LEVEL 1-5 Last administered on 10/07/16 09:43; Admin Dose 0.2 MG; Start 10/04/16 at 17:30; Stop 10/07/16 at 21:36 Hydromorphone HCl (Dilaudid) 0.4 mg Q2H PRN IV PAIN LEVEL 6-10 Last administered on 10/06/16 10:02; Admin Dose 0.4 MG; Start 10/04/16 at 17:30; Stop 10/07/16 at 21:36 Naloxone HCl (Narcan) 0.2 mg Q2M PRN IV FOR RESP RATE 8 OR LESS; Start at 17:30; Stop 10/07/16 at 21:36 Hydromorphone HCl (Dilaudid) 0.2 mg Q10MIN PRN IV breakthrough pain Last administered on 10/05/16 22:35; Admin Dose 0.2 MG; Start 10/05/16 at 22:30; Stop 10/07/16 at 21:36 Enoxaparin Sodium (Lovenox) 30 mg DAILY SC Last administered on 10/06/16t 11:46 ; Admin Dose 30 MG; Start 10/06/16 at 11:00; Status Future Hold HILARY WRIGHT MD Oct 07, 2016 14:59
[2016-10-07] MEDS ORDERED: HYDROmorphONE 1 MG/ML SYG IV PRN ×2 (15:00→16:00)
[2016-10-07 15:42] VITALS: BP 112/67; RESP 20
[2016-10-07 19:14] VITALS: BP 113/68; RESP 18
[2016-10-08] MEDS: D5W-0.45 NACL + KCL 20 MEQ 1,000 ML IV SCH ×3 (01:21→20:34)
[2016-10-08] MEDS: PANTOPRAZOLE 40 MG INJ IV SCH (04:51)
[2016-10-08 08:40] VITALS: BP 126/77; RESP 18
[2016-10-08 11:32] LABS: BASOPHIL # 0.1 10^3/ul (0.0-0.1); BASOPHILS % 0.6 % (0.0-2.0); EOSINOPHILS # 0.6 10^3/ul (0.0-0.5); EOSINOPHILS % 6.4 % (0.0-7.0); HEMATOCRIT 44.1 % (42.0-52.0); HEMOGLOBIN 15.1 g/dl (14.0-18.0); LYMPHOCYTES # 1.2 10^3/ul (0.8-2.9); LYMPHOCYTES % 13.7 % (15.0-51.0); MEAN CORPUSCULAR HEMOGLOBIN 30.4 pg (29.0-33.0); MEAN CORPUSCULAR HGB CONC 34.2 g/dl (32.0-37.0); MEAN CORPUSCULAR VOLUME 88.7 fl (82.0-101.0); MEAN PLATELET VOLUME 9.9 fl (7.4-10.4); MONOCYTE # 0.8 10^3/ul (0.3-0.9); MONOCYTES % 9.7 % (0.0-11.0); NEUTROPHILS % 69.3 % (39.0-77.0); PLATELET COUNT 175 10^3/UL (140-415); RED BLOOD COUNT 4.97 10^6/ul (4.70-6.10); RED CELL DISTRIBUTION WIDTH 12.1 % (11.5-14.5); WHITE BLOOD COUNT 8.7 10^3/ul (4.8-10.8)
[2016-10-08 12:00] LABS: INR 1.15; PROTIME 14.7 Sec (12.2-14.2); PT RATIO 1.1
[2016-10-08 12:01] LABS: PARTIAL THROMBOPLASTIN TIME 39.6 Sec (25.0-35.0)
[2016-10-08 12:10] LABS: CALCIUM 8.6 mg/dl (8.4-10.2); CREATININE 0.8 mg/dl (0.61-1.24); POTASSIUM 4.2 mmol/L (3.5-5.1)
--- NOTE | 2016-10-08 15:02 | PN ---
Date/Time of Note Date/Time of Note DATE: 10/08/16 TIME: 15:01 Assessment/Plan VTE Prophylaxis VTE Prophylaxis Intervention: other Lines/Catheters IV Catheter Type (from Nrsg): Central Line Central line still needed: Yes Urinary Cath still in place: Yes Reason Cath still needed: skin wounds contaminated by urine Assessment/Plan Chief Complaint/Hosp Course 1) stomach CA - s/p partial gastrectomy - monitor clinically - follow surgical recommendations Problems: Subjective 24 Hr Interval Summary Free Text/Dictation Pain is better but patient remain NPO Exam/Review of Systems Vital Signs Vitals Vital Signs Date Time Temp Pulse Resp B/P Pulse Ox O2 Delivery O2 Flow Rate FiO2 10/08/16 08:40 98.1 72 18 126/77 96 10/07/16 21:30 Nasal Cannula 1.0 Intake and Output 10/07/16 10/07/16 10/08/16 15:00 23:00 07:00 Intake Total 1030 ml 600 ml 0 ml Output Total 2050 ml 2400 ml Balance 1030 ml -1450 ml -2400 ml Exam Constitutional: well developed Head: atraumatic, normocephalic Neck: supple Respiratory: clear to auscultation Cardiovascular: regular rate and rhythm Gastrointestinal: non-tender, soft Extremities: normal pulses Results Result Diagram: 10/08/16 1032 10/08/16 1039 Results 24 hrs Laboratory Tests Test 10/08/16 10:32 10/08/16 10:39 White Blood Count 8.7 # Red Blood Count 4.97 Hemoglobin 15.1 Hematocrit 44.1 Mean Corpuscular Volume 88.7 Mean Corpuscular Hemoglobin 30.4 Mean Corpuscular Hemoglobin Concent 34.2 Red Cell Distribution Width 12.1 Platelet Count 175 Mean Platelet Volume 9.9 Neutrophils % 69.3 Lymphocytes % 13.7 L Monocytes % 9.7 Eosinophils % 6.4 Basophils % 0.6 Nucleated Red Blood Cells % 0.0 Neutrophils # 6.0 Lymphocytes # 1.2 Monocytes # 0.8 Eosinophils # 0.6 H Basophils # 0.1 Nucleated Red Blood Cells # 0.0 Prothrombin Time 14.7 H Prothrombin Time Ratio 1.1 INR International Normalized Ratio 1.15 Activated Partial Thromboplast Time 39.6 H Sodium Level 139 Potassium Level 4.2 Chloride Level 101 Carbon Dioxide Level 25 Anion Gap 17 H Blood Urea Nitrogen 7 Creatinine 0.80 Glucose Level 108 Calcium Level 8.6 Medications Medications Current Medications Pantoprazole 40 mg 40 mg DAILY@06 IV Last administered on 10/08/16 04:51; Admin Dose 40 MG; Start 10/05/16 at 06:00 Potassium Chloride/Dextrose/ Sod Cl (D5-1/2ns + KCl 20 Meq) 1,000 ml @ 150 mls/ hr Q6H40M IV Last administered on 10/08/16 08:57; Admin Dose 150 MLS/HR; Start 10/04/16 at 16:34 Enoxaparin Sodium (Lovenox) 30 mg DAILY SC Last administered on 10/06/16 11:46 ; Admin Dose 30 MG; Start 10/06/16 at 11:00; Status Future Hold Hydromorphone HCl (Dilaudid) 0.4 mg Q1H PRN IV PAIN Last administered on 16:41; Admin Dose 0.4 MG; Start 10/07/16 at 16:00 MOHINDER SIMMS Oct 08, 2016 15:02
[2016-10-08 15:41] VITALS: BP 115/73; RESP 18
--- NOTE | 2016-10-08 16:17 | PN ---
Date/Time of Note Date/Time of Note DATE: 10/08/16 TIME: 16:07 Assessment/Plan VTE Prophylaxis VTE Prophylaxis Intervention: ambulation Lines/Catheters IV Catheter Type (from [facility]): Central Line Central line still needed: Yes Urinary Cath still in place: No Assessment/Plan Assessment/Plan POD #4, S/P subtotal gasterectomy. pt. is stable. incidentally he pulled out his NGT, last night. PLAN.: To get an UPPER GI ,with Gastrograffin on Saturday, IF ok, will start feeding. Subjective 24 Hr Interval Summary Free Text/Dictation No specific complain. apparantly pulled out his N.G. tube last night, we will NOT insert it! Foly is out. Has urinated x3 since. has passed flatus, no BM. Exam/Review of Systems Vital Signs Vitals Vital Signs Date Time Temp Pulse Resp B/P Pulse Ox O2 Delivery O2 Flow Rate FiO2 10/08/16 15:41 98.1 81 18 115/73 96 10/07/16 21:30 Nasal Cannula 1.0 Intake and Output 10/07/16 10/07/16 10/08/16 15:00 23:00 07:00 Intake Total 1030 ml 600 ml 0 ml Output Total 2050 ml 2400 ml Balance 1030 ml -1450 ml -2400 ml Exam V.S. stable. Abdomen flat, soft.dressing intact. Results Result Diagram: 10/08/16 1032 10/08/16 1039 Results 24 hrs Laboratory Tests Test 10/08/16 10:32 10/08/16 10:39 White Blood Count 8.7 # Red Blood Count 4.97 Hemoglobin 15.1 Hematocrit 44.1 Mean Corpuscular Volume 88.7 Mean Corpuscular Hemoglobin 30.4 Mean Corpuscular Hemoglobin Concent 34.2 Red Cell Distribution Width 12.1 Platelet Count 175 Mean Platelet Volume 9.9 Neutrophils % 69.3 Lymphocytes % 13.7 L Monocytes % 9.7 Eosinophils % 6.4 Basophils % 0.6 Nucleated Red Blood Cells % 0.0 Neutrophils # 6.0 Lymphocytes # 1.2 Monocytes # 0.8 Eosinophils # 0.6 H Basophils # 0.1 Nucleated Red Blood Cells # 0.0 Prothrombin Time 14.7 H Prothrombin Time Ratio 1.1 INR International Normalized Ratio 1.15 Activated Partial Thromboplast Time 39.6 H Sodium Level 139 Potassium Level 4.2 Chloride Level 101 Carbon Dioxide Level 25 Anion Gap 17 H Blood Urea Nitrogen 7 Creatinine 0.80 Glucose Level 108 Calcium Level 8.6 Medications Medications Current Medications Pantoprazole 40 mg 40 mg DAILY@06 IV Last administered on 10/08/16 04:51; Admin Dose 40 MG; Start 10/05/16 at 06:00 Potassium Chloride/Dextrose/ Sod Cl (D5-1/2ns + KCl 20 Meq) 1,000 ml @ 150 mls/ hr Q6H40M IV Last administered on 10/08/16 08:57; Admin Dose 150 MLS/HR; Start 10/04/16 at 16:34 Enoxaparin Sodium (Lovenox) 30 mg DAILY SC Last administered on 10/06/16 11:46 ; Admin Dose 30 MG; Start 10/06/16 at 11:00; Status Future Hold Hydromorphone HCl (Dilaudid) 0.4 mg Q1H PRN IV PAIN Last administered on 16:41; Admin Dose 0.4 MG; Start 10/07/16 at 16:00 HILARY WRIGHT MD Oct 08, 2016 16:17
[2016-10-08 20:00] VITALS: BP 110/75; RESP 20
[2016-10-09] MEDS: D5W-0.45 NACL + KCL 20 MEQ 1,000 ML IV SCH ×3 (00:08→11:59)
[2016-10-09 02:13] VITALS: BP 101/65; RESP 18
[2016-10-09] MEDS: PANTOPRAZOLE 40 MG INJ IV SCH (05:11)
[2016-10-09 09:03] VITALS: BP 99/66; RESP 20
--- NOTE | 2016-10-09 12:36 | PN ---
Date/Time of Note Date/Time of Note DATE: 10/09/16 TIME: 12:35 Assessment/Plan VTE Prophylaxis VTE Prophylaxis Intervention: other Lines/Catheters IV Catheter Type (from [facility]): CENTRAL LINE Urinary Cath still in place: No Assessment/Plan Chief Complaint/Hosp Course 1) stomach CA - s/p partial gastrectomy - monitor clinically - follow surgical recommendations Problems: Subjective 24 Hr Interval Summary Free Text/Dictation Patient ambulating, passing gas but still NPO Exam/Review of Systems Vital Signs Vitals Vital Signs Date Time Temp Pulse Resp B/P Pulse Ox O2 Delivery O2 Flow Rate FiO2 10/09/16 09:03 97.9 85 20 99/66 94 10/07/16 21:30 Nasal Cannula 1.0 Intake and Output 10/08/16 10/08/16 10/09/16 15:00 23:00 07:00 Intake Total 1520 ml 1725 ml Output Total 1500 ml 1450 ml Balance 20 ml 275 ml Exam Constitutional: well developed Head: atraumatic, normocephalic Neck: supple Respiratory: clear to auscultation Cardiovascular: regular rate and rhythm Gastrointestinal: non-tender, soft Extremities: normal pulses Results Result Diagram: 10/08/16 1032 10/08/16 1039 Medications Medications Current Medications Pantoprazole 40 mg 40 mg DAILY@06 IV Last administered on 10/09/16 05:11; Admin Dose 40 MG; Start 10/05/16 at 06:00 Potassium Chloride/Dextrose/ Sod Cl (D5-1/2ns + KCl 20 Meq) 1,000 ml @ 150 mls/ hr Q6H40M IV Last administered on 10/09/16 11:59; Admin Dose 150 MLS/HR; Start 10/04/16 at 16:34 Enoxaparin Sodium (Lovenox) 30 mg DAILY SC Last administered on 10/06/16 11:46 ; Admin Dose 30 MG; Start 10/06/16 at 11:00; Status Future Hold Hydromorphone HCl (Dilaudid) 0.4 mg Q1H PRN IV PAIN Last administered on 16:41; Admin Dose 0.4 MG; Start 10/07/16 at 16:00 MOHINDER SIMMS Oct 09, 2016 12:36
--- NOTE | 2016-10-09 15:23 | PN ---
Date/Time of Note Date/Time of Note DATE: 10/09/16 TIME: 15:19 Assessment/Plan VTE Prophylaxis VTE Prophylaxis Intervention: ambulation Lines/Catheters IV C[facility]ter Type [facility]from [facility] CENTRAL LINE Central line still needed: Yes Urinary Cath still in place: No Assessment/Plan Assessment/Plan 51-year-old gentleman postop day #5 status post subtotal gastrectomy for cancer of the stomach. Patient is a stable vital signs are stable abdomen is soft urination is no problem. No BM yet Plan: We will check an upper GI tomorrow with Gastrografin if everything is okay we will start patient on diet. Subjective 24 Hr Interval Summary Free Text/Dictation No complaint. No nausea no vomiting. No bowel movement. Minimal pain. Passively little bit of gas. Has been up and around walking. Exam/Review of Systems Vital Signs Vitals Vital Signs Date Time Temp Pulse Resp B/P Pulse Ox O2 Delivery O2 Flow Rate FiO2 10/09/16 09:03 97.9 85 20 99/66 94 10/07/16 21:30 Nasal Cannula 1.0 Intake and Output 10/08/16 10/08/16 10/09/16 15:00 23:00 07:00 Intake Total 1520 ml 1725 ml Output Total 1500 ml 1450 ml Balance 20 ml 275 ml Exam Postop day #5. Status post laparotomy subtotal gastrectomy. Abdomen is soft wound clean. Results Result Diagram: 10/08/16 1032 10/08/16 1039 Medications Medications Current Medications Pantoprazole 40 mg 40 mg DAILY@06 IV Last administered on 10/09/16 05:11; Admin Dose 40 MG; Start 10/05/16 at 06:00 Potassium Chloride/Dextrose/ Sod Cl (D5-1/2ns + KCl 20 Meq) 1,000 ml @ 150 mls/ hr Q6H40M IV Last administered on 10/09/16 11:59; Admin Dose 150 MLS/HR; Start 10/04/16 at 16:34 Enoxaparin Sodium (Lovenox) 30 mg DAILY SC Last administered on 10/06/16 11:46 ; Admin Dose 30 MG; Start 10/06/16 at 11:00; Status Future Hold Hydromorphone HCl (Dilaudid) 0.4 mg Q1H PRN IV PAIN Last administered on 16:41; Admin Dose 0.4 MG; Start 10/07/16 at 16:00 HILARY WRIGHT MD Oct 09, 2016 15:23
[2016-10-09 17:58] VITALS: BP 107/67; RESP 18
[2016-10-09 20:53] VITALS: BP 97/63; RESP 20
[2016-10-10] MEDS: D5W-0.45 NACL + KCL 20 MEQ 1,000 ML IV SCH ×4 (00:44→21:12)
[2016-10-10 02:30] VITALS: BP 108/66; RESP 20
[2016-10-10] MEDS: PANTOPRAZOLE 40 MG INJ IV SCH (06:25)
[2016-10-10 08:00] VITALS: BP 101/70; RESP 18
--- NOTE | 2016-10-10 10:09 | PN ---
Date/Time of Note Date/Time of Note DATE: 10/10/16 TIME: 10:08 Assessment/Plan VTE Prophylaxis VTE Prophylaxis Intervention: other Lines/Catheters IV Catheter Type (from Nrs): Central Line Central line still needed: Yes Urinary Cath still in place: No Assessment/Plan Chief Complaint/Hosp Course 1) stomach CA - s/p partial gastrectomy - monitor clinically - follow surgical recommendations Problems: Subjective 24 Hr Interval Summary Free Text/Dictation Patient denies any pain but no bowel movements yet Exam/Review of Systems Vital Signs Vitals Vital Signs Date Time Temp Pulse Resp B/P Pulse Ox O2 Delivery O2 Flow Rate FiO2 10/10/16 08:00 97.9 82 18 101/70 97 10/07/16 21:30 Nasal Cannula 1.0 Intake and Output 10/09/16 10/09/16 10/10/16 14:59 22:59 06:59 Intake Total 1520 ml 1200 ml Output Total 1500 ml 800 ml Balance 20 ml 400 ml Exam Constitutional: well developed Head: atraumatic, normocephalic Neck: supple Respiratory: clear to auscultation Cardiovascular: regular rate and rhythm Gastrointestinal: non-tender, soft Extremities: normal pulses Results Result Diagram: 10/08/16 1032 10/08/16 1039 Medications Medications Current Medications Pantoprazole 40 mg 40 mg DAILY@06 IV Last administered on 10/10/16 06:25; Admin Dose 40 MG; Start 10/05/16 at 06:00 Potassium Chloride/Dextrose/ Sod Cl (D5-1/2ns + KCl 20 Meq) 1,000 ml @ 150 mls/ hr Q6H40M IV Last administered on 10/10/16 06:25; Admin Dose 150 MLS/HR; Start 10/04/16 at 16:34 Enoxaparin Sodium (Lovenox) 30 mg DAILY SC Last administered on 10/06/16 11:46 ; Admin Dose 30 MG; Start 10/06/16 at 11:00; Status Future Hold Hydromorphone HCl (Dilaudid) 0.4 mg Q1H PRN IV PAIN Last administered on 16:41; Admin Dose 0.4 MG; Start 10/07/16 at 16:00 MOHIDNER SIMMS Oct 10, 2016 10:09
[2016-10-10] MEDS ORDERED: DIATR MEGLU/DIATRIZOATE SODIUM 120 ML BTL ONE (11:22)
[2016-10-10 14:00] VITALS: BP 111/74; RESP 20
--- NOTE | 2016-10-10 15:26 | PN ---
Date/Time of Note Date/Time of Note DATE: 10/10/16 TIME: 15:22 Assessment/Plan VTE Prophylaxis VTE Prophylaxis Intervention: ambulation Lines/Catheters IV Catheter Type (from [facility]): Central Line Central line still needed: Yes Urinary Cath still in place: No Assessment/Plan Assessment/Plan Postop day #6 pleurotomy subtotal gastrectomy for cancer of the stomach. The pathology shows that the cancer is not involving the lines of resection. All margins are clear. All lymph nodes are negative. Today patient had Gastrografin upper GI series done. Unfortunately after this on 3 PM this patient has not been uploaded in the computer and the report is not available yet. As soon as we get the per the radiology report on the upper GI I am going to start patient on clear liquids advanced to full liquid diet today. Subjective 24 Hr Interval Summary Free Text/Dictation No complain. Today morning he had Gastrografin upper GI series done. The result is not back yet. The pictures are not uploaded in the computer either. Patient has had several bowel movements today. No nausea no vomiting. Exam/Review of Systems Vital Signs Vitals Vital Signs Date Time Temp Pulse Resp B/P Pulse Ox O2 Delivery O2 Flow Rate FiO2 10/10/16 14:00 98.7 86 20 111/74 98 10/07/16 21:30 Nasal Cannula 1.0 Intake and Output 10/09/16 10/09/16 10/10/16 15:00 23:00 07:00 Intake Total 1520 ml 1200 ml Output Total 1500 ml 800 ml Balance 20 ml 400 ml Exam Postop day #6 laparotomy distal partial gastrectomy. Vital signs stable. Pathology is reported cancer has been out all the margins are clear. All lymph nodes are negative. Patient is alert awake oriented 3. Vital sign is stable. Abdomen soft bowel sounds present. Results Result Diagram: 10/08/16 1032 10/08/16 1039 Medications Medications Current Medications Pantoprazole 40 mg 40 mg DAILY@06 IV Last administered on 10/10/16 06:25; Admin Dose 40 MG; Start 10/05/16 at 06:00 Potassium Chloride/Dextrose/ Sod Cl (D5-1/2ns + KCl 20 Meq) 1,000 ml @ 150 mls/ hr Q6H40M IV Last administered on 10/10/16 13:45; Admin Dose 150 MLS/HR; Start 10/04/16 at 16:34 Enoxaparin Sodium (Lovenox) 30 mg DAILY SC Last administered on 10/06/16 11:46 ; Admin Dose 30 MG; Start 10/06/16 at 11:00; Status Future Hold Hydromorphone HCl (Dilaudid) 0.4 mg Q1H PRN IV PAIN Last administered on 16:41; Admin Dose 0.4 MG; Start 10/07/16 at 16:00 HILARY WRIGHT MD Oct 10, 2016 15:26
--- NOTE | 2016-10-10 16:24 | RADRPT ---
PROCEDURE: Upper GI series. CLINICAL INDICATION: Abdomen pain. TECHNIQUE: Gastrographin was administered orally and several spot and overhead radiographs were ob tained. A total of 0.2 minutes of fluoroscopy time was used. 28 images were obtained. COMPARISON: No prior study is available for comparison. FINDINGS: There is no aspiration. Esophageal motility is normal. There is no esophageal mass, ulcer, or stricture. There is prior partial gastrectomy with absence of the mid and distal stomach. There is no anastomo tic leak. Contrast rapidly exits the stomach. Anterior skin ruthann are noted. IMPRESSION: 1. Satisfactory postoperative appearance of partial gastrectomy. 2. No contrast leak at the anastomotic site. RPTAT: QQ .Onofre Henderson MD, Date Time Electronically viewed and signed by .Onofre Henderson MD, on 10/10/2016 16:24 .R/
[2016-10-10 20:20] VITALS: BP 105/72; RESP 22
[2016-10-11 03:45] VITALS: BP 95/62; RESP 20
[2016-10-11] MEDS: D5W-0.45 NACL + KCL 20 MEQ 1,000 ML IV SCH ×2 (03:52→11:48)
[2016-10-11] MEDS: PANTOPRAZOLE 40 MG INJ IV SCH (05:49)
[2016-10-11 08:26] VITALS: BP 91/59; RESP 20
--- NOTE | 2016-10-11 12:03 | PN ---
Date/Time of Note Date/Time of Note DATE: 10/11/16 TIME: 12:02 Assessment/Plan VTE Prophylaxis VTE Prophylaxis Intervention: other Lines/Catheters IV Catheter Type (from Nrs): Central Line Central line still needed: Yes Urinary Cath still in place: No Assessment/Plan Chief Complaint/Hosp Course 1) stomach CA - s/p partial gastrectomy - monitor clinically - follow surgical recommendations Problems: Subjective 24 Hr Interval Summary Free Text/Dictation Patient is doing well, tolerating clear liquids Exam/Review of Systems Vital Signs Vitals Vital Signs Date Time Temp Pulse Resp B/P Pulse Ox O2 Delivery O2 Flow Rate FiO2 10/11/16 08:26 97.7 54 20 91/59 100 10/07/16 21:30 Nasal Cannula 1.0 Intake and Output 10/10/16 10/10/16 10/11/16 15:00 23:00 07:00 Intake Total 1000 ml 950 ml 800 ml Output Total 800 ml 1150 ml Balance 1000 ml 150 ml -350 ml Exam Constitutional: well developed Head: atraumatic, normocephalic Neck: supple Respiratory: clear to auscultation Cardiovascular: regular rate and rhythm Gastrointestinal: non-tender, soft Extremities: normal pulses Results Result Diagram: 10/08/16 1032 10/08/16 1039 Medications Medications Current Medications Pantoprazole 40 mg 40 mg DAILY@06 IV Last administered on 10/11/16 05:49; Admin Dose 40 MG; Start 10/05/16 at 06:00 Potassium Chloride/Dextrose/ Sod Cl (D5-1/2ns + KCl 20 Meq) 1,000 ml @ 150 mls/ hr Q6H40M IV Last administered on 10/11/16 11:48; Admin Dose 150 MLS/HR; Start 10/04/16 at 16:34 Enoxaparin Sodium (Lovenox) 30 mg DAILY SC Last administered on 10/06/16 11:46 ; Admin Dose 30 MG; Start 10/06/16 at 11:00; Status Future Hold Hydromorphone HCl (Dilaudid) 0.4 mg Q1H PRN IV PAIN Last administered on 16:41; Admin Dose 0.4 MG; Start 10/07/16 at 16:00 MOHINDER SIMMS Oct 11, 2016 12:03
--- NOTE | 2016-10-11 12:20 | PN ---
Date/Time of Note Date/Time of Note DATE: 10/11/16 TIME: 12:15 Assessment/Plan VTE Prophylaxis VTE Prophylaxis Intervention: ambulation Lines/Catheters IV [facility] Central Line Central line still needed: No Urinary Cath still in place: No Assessment/Plan Assessment/Plan 51-year-old female is status post laparotomy subtotal gastrectomy for distal cancer of the stomach. Today is postop day #7 patient has tolerated full liquid diet. We will advance to soft diet today. Tolerates patient can be discharged home tomorrow. Will DC central line today. Subjective 24 Hr Interval Summary Free Text/Dictation No complain. Has tolerated full liquid diet. No solid bowel movement yet. We will start a soft diet today. Exam/Review of Systems Vital Signs Vitals Vital Signs Date Time Temp Pulse Resp B/P Pulse Ox O2 Delivery O2 Flow Rate FiO2 10/11/16 08:26 97.7 54 20 91/59 100 10/07/16 21:30 Nasal Cannula 1.0 Intake and Output 10/10/16 10/10/16 10/11/16 15:00 23:00 07:00 Intake Total 1000 ml 950 ml 800 ml Output Total 800 ml 1150 ml Balance 1000 ml 150 ml -350 ml Exam Postop day #7. Status post laparotomy subtotal gastrectomy. Vital sign is stable. Regional dressing of the abdomen was changed wound is clean. Results Result Diagram: 10/08/16 1032 10/08/16 1039 Medications Medications Current Medications Pantoprazole 40 mg 40 mg DAILY@06 IV Last administered on 10/11/16 05:49; Admin Dose 40 MG; Start 10/05/16 at 06:00 Potassium Chloride/Dextrose/ Sod Cl (D5-1/2ns + KCl 20 Meq) 1,000 ml @ 150 mls/ hr Q6H40M IV Last administered on 10/11/16 11:48; Admin Dose 150 MLS/HR; Start 10/04/16 at 16:34 Enoxaparin Sodium (Lovenox) 30 mg DAILY SC Last administered on 10/06/16 11:46 ; Admin Dose 30 MG; Start 10/06/16 at 11:00; Status Future Hold Hydromorphone HCl (Dilaudid) 0.4 mg Q1H PRN IV PAIN Last administered on 16:41; Admin Dose 0.4 MG; Start 10/07/16 at 16:00 HILARY WRIGHT MD Oct 11, 2016 12:20
[2016-10-11 13:36] LABS: BASOPHIL # 0.1 10^3/ul (0.0-0.1); EOSINOPHILS # 0.6 10^3/ul (0.0-0.5); EOSINOPHILS % 7.3 % (0.0-7.0); HEMATOCRIT 45.3 % (42.0-52.0); HEMOGLOBIN 15.6 g/dl (14.0-18.0); LYMPHOCYTES # 1.2 10^3/ul (0.8-2.9); LYMPHOCYTES % 14.1 % (15.0-51.0); MEAN CORPUSCULAR HEMOGLOBIN 30.6 pg (29.0-33.0); MEAN CORPUSCULAR HGB CONC 34.4 g/dl (32.0-37.0); MEAN CORPUSCULAR VOLUME 88.8 fl (82.0-101.0); MEAN PLATELET VOLUME 9.6 fl (7.4-10.4); MONOCYTE # 0.7 10^3/ul (0.3-0.9); MONOCYTES % 8.4 % (0.0-11.0); NEUTROPHIL # 5.7 10^3/ul (1.6-7.5); PLATELET COUNT 242 10^3/UL (140-415); RED CELL DISTRIBUTION WIDTH 12.2 % (11.5-14.5); WHITE BLOOD COUNT 8.3 10^3/ul (4.8-10.8)
[2016-10-11 15:08] VITALS: BP 107/68; RESP 16
[2016-10-11 20:31] VITALS: BP 96/61; RESP 20
[2016-10-12 03:33] VITALS: BP 101/60; RESP 20
[2016-10-12] MEDS: PANTOPRAZOLE 40 MG INJ IV SCH (06:00)
[2016-10-12 07:00] VITALS: BP 91/59; RESP 20
--- NOTE | 2016-10-12 14:03 | DS ---
Date/Time of Note Date/Time of Note DATE: 10/12/16 TIME: 14:03 Discharge Summary Admission/Discharge Info Admit Date/Time Oct 04, 2016 at 10:14 Discharge Date/Time Oct 12, 2016 at 13:40 Hx of Present Illness Patient with stomach cancer comes in for partial gastrectomy. Patient tolerated the procedure without complication. Hospital Course Patient comes in with stomach cancer. He underwent partial gastrectomy. He tolerated the procedure. Once stable, patient was discharged home. 1) stomach CA - s/p partial gastrectomy - monitor clinically - follow surgical recommendations Home Meds Discontinued Reported Medications Apixaban* (Eliquis*) 5 Mg Tablet, 5 MG PO DAILY, TAB 10/04/16 Primary Care Provider Not On Staff Doctor MOHINDER SIMMS Oct 12, 2016 14:03
== END 2016-10-12 13:40 | disposition home or self-care (01) | DRG 328 ==
LOC: REC 10:14 → MS1 19:45
PROVIDERS: ADMIT Surgery Surgical Oncology; ATTEND Surgery Surgical Oncology
PROC: 0D160ZA Bypass Stomach to Jejunum, Open Approach (ICD-10-PCS; 2016-10-04)
PROC: 0DB60ZZ Excision of Stomach, Open Approach (ICD-10-PCS; principal; 2016-10-04 14:00)
DX: C16.3 Malignant neoplasm of pyloric antrum (principal)
CPT/HCPCS: 71010; 74240; 80048; 85025; 85610; 85730; 86850; 86900; 86901; 87086; 88307; 88331; C9113; J0295; J1100; J1170; J1650; J2250; J2370; J2405; J2543; J2795; J3010; J3480; J7999